=== PATIENT | female | born 1995 | race Caucasian/White ===

== ENCOUNTER 2017-11-28 12:02 | Emergency (ER) | payer BC ==
[2017-11-28 13:10] VITALS: BP 116/75
[2017-11-28] MEDS ORDERED: Ibuprofen TAB* 600 MG PO ONE (13:34)
--- NOTE | 2017-11-28 13:41 | UC ---
FLU HPI - HPI Summary HPI Summary: Patient presents with an unremarkable past medical history. She presents with complaints of sudden onset fever,fatigue, generalized body aches, right ear pain , sore throat. She states she did vomit x 1 this morning. She denies abdominal pain, dysuria, hemturia, or abnormal vaginal discharge. 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 - History of Current Complaint Hx Obtained From: Patient Hx Last Menstrual Period: 11/12/17 Onset/Duration: Sudden Onset, Lasting Hours Severity Currently: Mild Severity Initially: Moderate Pain Intensity: 7 Associated Signs & Symptoms: Positive: Cough, Sore Throat - Risk Factors Influenza Risk Factors: Negative <Krystle Mullins - Last Filed: 11/28/17 13:55> <Halima Nevarez - Last Filed: 11/28/17 14:13> - History of Current Complaint Chief Complaint: UCGeneralIllness Stated Complaint: CHILLS, VOMITING, AND SORE THROAT Time Seen by Provider: 11/28/17 13:27 - Allergy/Home Medications Allergies/Adverse Reactions: Allergies Allergy/AdvReac Type Severity Reaction Status Date / Time No Known Allergies Allergy Verified 11/28/17 12:17 PMH/Surg Hx/FS Hx/Imm Hx Previously Healthy: Yes - Surgical History Surgical History: Yes Surgery Procedure, Year, and Place: endoscopy - Family History Known Family History: Positive: None - Social History Occupation: Employed Full-time Lives: Alone Alcohol Use: Occasionally Substance Use Type: None Smoking Status (MU): Never Smoked Tobacco <Krystle Mullins - Last Filed: 11/28/17 13:55> Review of Systems Constitutional: Fever, Chills, Fatigue Skin: Negative Eyes: Negative ENT: Sore Throat, Ear Ache Respiratory: Negative Cardiovascular: Negative Gastrointestinal: Negative Genitourinary: Negative Motor: Negative Neurovascular: Negative Musculoskeletal: Negative Neurological: Negative Psychological: Negative Is Patient Immunocompromised?: No All Other Systems Reviewed And Are Negative: Yes <Krystle Mullins - Last Filed: 11/28/17 13:55> Physical Exam Triage Information Reviewed: Yes Appearance: Ill-Appearing Vital Signs: Initial Vital Signs Temp 98 F 11/28/17 12:18 Pulse 127 11/28/17 12:18 Resp 20 11/28/17 12:18 BP 99/68 11/28/17 12:18 Pulse Ox 100 11/28/17 12:18 Vital Signs Reviewed: Yes Eye Exam: Normal ENT: Positive: Pharyngeal erythema, Tonsillar swelling Neck exam: Normal Neck: Positive: 1 Respiratory Exam: Normal Cardiovascular Exam: Normal Abdominal Exam: Normal Musculoskeletal Exam: Normal Neurological Exam: Normal Psychological Exam: Normal Skin Exam: Normal <Krystle Mullins - Last Filed: 11/28/17 13:55> Vital Signs: Initial Vital Signs Temp 98 F 11/28/17 12:18 Pulse 127 11/28/17 12:18 Resp 20 11/28/17 12:18 BP 99/68 11/28/17 12:18 Pulse Ox 100 11/28/17 12:18 <Halima Nevarez - Last Filed: 11/28/17 14:13> Flu Course/Dx - Course Course Of Treatment: Patient presents with an unremarkable past medical history. 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 She presents with complaints of sore throat, and rapid strep was positive. Her pulse rate was 120, BP 98/68 and fever, due to illness and I feel most likely decreased P.O. intact. She is however, drining and eating but less than normal. She was drinking fluids in the department, and was given advil 600 mg in the clinic. I discussed the test results with the patient and took her out of work until Sunday. I told her if she is not feeling better in 48 hours she would need to be re-evaluated. I also recommend that she alternate tylenol 650 mg and advil 400 mg every four hours. She verbalized understanding of and was in agreement with the discharge plan. - Differential Dx/Diagnosis Differential Diagnosis/HQI/PQRI: Other - strep throat Provider Diagnoses: strep throat <Krystle Mullins - Last Filed: 11/28/17 13:55> Discharge <Krystle Mullins - Last Filed: 11/28/17 13:55> <Halima Nevarez - Last Filed: 11/28/17 14:13> - Discharge Plan Condition: Stable Disposition: HOME Prescriptions: Penicillin VK TAB* [Penicillin VK 250 mg Tab*] 500 mg PO QID #40 tab Patient Education Materials: Strep Throat (DC) Forms: *Work Release Referrals: No Primary Care Phys,NOPCP [Primary Care Provider] - Attestation Statement User Type: Provider - I was available for consult. This patient was seen by the RYANN. The patient was not presented to, seen by, or examined by me. Pio <Halima Nevarez - Last Filed: 11/28/17 14:13>
== END 2017-11-28 14:00 | disposition home or self-care (01) ==
LOC: UCEAST 12:02
DX: J02.0 Streptococcal pharyngitis (principal)
CPT/HCPCS: 87651; 99202; A9270-GY; G0463

== ENCOUNTER 2019-08-27 15:04 | Emergency (ER) | payer BC ==
[2019-08-27 16:06] VITALS: BP 114/74
--- NOTE | 2019-08-27 17:22 | UC ---
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 Was improving, now cough has increased and feels more unwell. Subjective fever. Remote hx of asthma. Almost coughing to the point of vomiting. 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 - here with her Hx Last Menstrual Period: 08/01/19 Onset/Duration: Gradual Onset, Lasting Weeks - 2 Severity: Moderate Pain Intensity: 3 Cough: Nonproductive Associated Signs & Symptoms: Positive: Hoarseness - Epiglottits Risk Factors Epiglottis Risk Factors: Negative - Allergies/Home Medications Allergies/Adverse Reactions: Allergies Allergy/AdvReac Type Severity Reaction Status Date / Time No Known Allergies Allergy Verified 08/27/19 16:06 Home Medications: Home Medications D-Methorphan/PE/Acetaminophen [Vicks Dayquil Liquicaps] PRN 08/27/19 [History] Dm/Acetaminophen/Doxylamine [Vicks Nyquil Liquicaps] PRN 08/27/19 [History] GuaiFENesin DM* [Robitussin DM*] 5 ml PO PRN 08/27/19 [History] Nitrofurantoin Macrocrystals* [Macrodantin 100 mg*] 100 mg PO BID 08/27/19 [ History Confirmed 08/27/19] PMH/Surg Hx/FS Hx/Imm Hx Previously Healthy: Yes - Surgical History Surgical History: Yes Surgery Procedure, Year, and Place: endoscopy - Family History Known Family History: Positive: None - parents alive and well, no hx of chronic diseases. - Social History Occupation: Employed Full-time Lives: With Family Alcohol Use: Occasionally Substance Use Type: None Smoking Status (MU): Never Smoked Tobacco Review of Systems All Other Systems Reviewed And Are Negative: Yes Constitutional: Positive: Fatigue Skin: Positive: Negative Eyes: Positive: Negative ENT: Positive: Sore Throat Respiratory: Positive: Shortness Of Breath, Cough Cardiovascular: Negative: Palpitations, Chest Pain Gastrointestinal: Positive: Nausea Genitourinary: Positive: Negative Motor: Positive: Negative Neurovascular: Positive: Negative Musculoskeletal: Positive: Negative Neurological: Positive: Negative Psychological: Positive: Negative Is Patient Immunocompromised?: No Physical Exam Triage Information Reviewed: Yes Appearance: No Pain Distress, Ill-Appearing - looks fatigued., Thin Vital Signs: Initial Vital Signs Temp 97.8 F 08/27/19 16:02 Pulse 80 08/27/19 16:02 Resp 16 08/27/19 16:02 BP 114/74 08/27/19 16:02 Pulse Ox 99 08/27/19 16:02 Eyes: Positive: Conjunctiva Clear ENT: Positive: Pharyngeal erythema, TMs normal Respiratory: Positive: Lungs clear, Normal breath sounds, No respiratory distress Cardiovascular: Positive: RRR, No Murmur Musculoskeletal Exam: Normal Neurological Exam: Normal Psychological Exam: Normal Throat Pain/Nasal Course/Dx - Course Course Of Treatment: possible mycoplasma given persistent symptoms and malaise. will rx zpack and prednisone. - Differential Dx/Diagnosis Differential Diagnosis/HQI/PQRI: Tonsillitis, URI, Other - pneumonia, bronchitis. Provider Diagnosis: Mycoplasma infection, unspecified site Discharge ED - Sign-Out/Discharge Documenting (check all that apply): Patient Departure All imaging exams completed and their final reports reviewed: No Studies - Discharge Plan Condition: Stable Disposition: HOME Prescriptions: Azithromyxin KATY (NF) [Z-Katy (Zithromax) 250 mg tabs #6] 2 tab PO .TODAY, THEN 1 DAILY #6 tab predniSONE [Prednisone 20 MG TAB] 2 tab PO ONCE #10 tablet Patient Education Materials: Upper Respiratory Infection (ED) Referrals: No Primary Care Phys,NOPCP [Primary Care Provider] - Additional Instructions: It is possible that you have a mycoplasma infection, which will respond to treatment with azithromycin. Take the full course of antibiotics. Use prednisone to decrease airway inflammation. This can cause stomach upset and possible irritability. - Billing Disposition and Condition Condition: STABLE Disposition: Home
== END 2019-08-27 17:35 | disposition home or self-care (01) ==
LOC: UCEAST 15:04
DX: A49.3 Mycoplasma infection, unspecified site (principal); R06.02 Shortness of breath; R05 Cough; J02.9 Acute pharyngitis, unspecified
CPT/HCPCS: 99212; G0463